=== PATIENT | male | born 1960 | race Caucasian/White ===

== ENCOUNTER 2022-09-05 17:10 | Inpatient (IN) | payer BC, OTHER ==
[~2022-09-05] VITALS: Ht 167.6 cm; Wt 87.0 kg
[2022-09-05] MEDS ORDERED: MORPHINE SULFATE 4 MG/ML SYR/VIAL IV ONE ×2 (21:00→22:00)
[2022-09-05] MEDS ORDERED: ONDANSETRON HCL 4 MG/2 ML VIAL IV ONE ×2 (21:00→22:00)
[2022-09-06 00:15] LABS: Basophils # (auto) 0 10 ^3/uL (0-0.2); Basophils % (auto) 0.1 % (0.0-2.0); Eosinophils # (auto) 0.1 10 ^3/uL (0-0.8); Eosinophils % (auto) 0.8 % (0.0-7.0); Hematocrit 37.2 % (41.0-53.0); Hemoglobin 12.4 g/dL (13.5-17.5); Lymphocytes # (auto) 1.7 10 ^3/uL (0.4-5.4); Lymphocytes % (auto) 20.1 % (10.0-50.0); Mean Corpuscular Hemoglobin 32.7 pg (28.0-32.0); Mean Corpuscular Hgb Conc. 33.2 g/dL (32.0-36.0); Mean Corpuscular Volume 98.3 fL (80.0-100.0); Monocytes # (auto) 0.7 10 ^3/uL (0-1.3); Monocytes % (auto) 7.8 % (0.0-12.0); Neutrophils # (auto) 6.2 10 ^3/uL (1.6-8.6); Neutrophils % (auto) 71.2 % (37.0-80.0); Red Blood Cells 3.79 10^6/uL (4.5-5.90); Red Cell Distribution Width 13.3 % (11.8-14.3); White Blood Cell 8.7 10^3/uL (4.4-10.8)
[2022-09-06 00:28] LABS: Albumin 3.1 g/dL (3.4-5.0); BUN/Creatinine Ratio 23.8; Calcium 8.7 mg/dL (8.5-10.1); INR 1.02 (0.9-1.15); Potassium 3.7 mmol/L (3.5-5.1)
[2022-09-06 00:38] LABS: Total Protein 6.6 g/dL (6.4-8.2)
[2022-09-06] MEDS ORDERED: ONDANSETRON HCL 4 MG/2 ML VIAL IV PRN ×2 (02:45→04:30)
[2022-09-06] MEDS ORDERED: ACETAMINOPHEN 325 MG TAB PO PRN ×2 (02:45→04:30)
[2022-09-06] MEDS ORDERED: TEMAZEPAM 15 MG CAP PO PRN ×2 (02:45→04:30)
[2022-09-06] MEDS ORDERED: MORPHINE SULFATE INJ 2 MG/ml SYRG IV PRN (02:45)
[2022-09-06] MEDS ORDERED: HYDROcodone-ACET 5/325MG TAB PO PRN (02:45)
[2022-09-06 04:01] LABS: Urine Bacteria FEW /hpf (None Seen); Urine Blood Negative /uL (Negative); Urine Hyaline Cast FEW /lpf (0 - 2); Urine WBC 2 /hpf (0 - 3)
[2022-09-06] MEDS: MORPHINE SULFATE INJ 2 MG/ml SYRG IV PRN ×2 (04:45→10:06)
[2022-09-06 04:55] VITALS: BP 124/80
[2022-09-06 05:00] VITALS: BP 124/80
[2022-09-06] MEDS ORDERED: PNEUMOCOCCAL VACC POLYS 25 MCG/0.5 ML VIAL IM ONE (06:00)
[2022-09-06 09:00] VITALS: BP 127/73
[2022-09-06] MEDS ORDERED: PANTOPRAZOLE 40 MG TAB PO SCH (10:00)
[2022-09-06] MEDS ORDERED: LABETALOL HCL 200 MG TAB PO SCH (10:00)
[2022-09-06] MEDS: PANTOPRAZOLE 40 MG TAB PO SCH (10:05)
[2022-09-06] MEDS: LABETALOL HCL 200 MG TAB PO SCH ×2 (10:05→21:30)
[2022-09-06] MEDS: D5W/SOD CHLO 0.9% 1,000 ML IV SCH ×2 (10:55→18:30)
[2022-09-06 13:00] VITALS: BP 127/71
[2022-09-06] MEDS: MORPHINE SULFATE 4 MG/ML SYR/VIAL IV PRN ×3 (13:02→23:49)
[2022-09-06 17:00] VITALS: BP 132/79
[2022-09-06 19:16] LABS: INR 1.03 (0.9-1.15); Partial Thromboplastin Time 29.8 sec (24.6-33.4)
[2022-09-06] MEDS: ATORVASTATIN 20 MG TAB PO SCH (21:30)
[2022-09-06 22:00] VITALS: BP 120/83
[2022-09-06] MEDS ORDERED: ATORVASTATIN 20 MG TAB PO SCH (22:00)
[2022-09-07] MEDS: D5W/SOD CHLO 0.9% 1,000 ML IV SCH ×4 (02:37→21:52)
[2022-09-07 05:00] VITALS: BP 130/80
[2022-09-07] MEDS: MORPHINE SULFATE 4 MG/ML SYR/VIAL IV PRN ×4 (06:04→21:53)
[2022-09-07 08:35] VITALS: BP 150/79
[2022-09-07] MEDS ORDERED: TETRACAINE 1% INJ 2 ML VIAL IJ ONE (09:05)
[2022-09-07] MEDS ORDERED: MORPHINE SULF PF 5 MG/10 ML VIAL ONE (09:07)
[2022-09-07] MEDS ORDERED: fentaNYL CITRATE 100 MCG/2 ML VL ONE (09:07)
[2022-09-07] MEDS ORDERED: MIDAZOLAM HCL 2MG/2ML 2ml VIAL (1mg/ml) ONE (09:15)
[2022-09-07] MEDS ORDERED: PROPOFOL 10 MG/ML 20 ML IV ONE (09:18)
[2022-09-07] MEDS ORDERED: ONDANSETRON HCL 4 MG/2 ML VIAL ONE (09:44)
[2022-09-07] MEDS: PANTOPRAZOLE 40 MG TAB PO SCH (10:00)
[2022-09-07] MEDS: LABETALOL HCL 200 MG TAB PO SCH ×2 (10:00→21:52)
[2022-09-07] MEDS ORDERED: ONDANSETRON HCL 4 MG/2 ML VIAL IV PRN (10:15)
[2022-09-07] MEDS: HYDROmorphone HCL 2 MG/ML VL/or syr IV PRN ×3 (10:18→10:41)
[2022-09-07 13:44] VITALS: BP 150/79
[2022-09-07] MEDS: HYDROcodone-ACET 5/325MG TAB PO PRN (15:35)
[2022-09-07 17:00] VITALS: BP 142/80
[2022-09-07] MEDS: ATORVASTATIN 20 MG TAB PO SCH (21:52)
[2022-09-07 22:00] VITALS: BP 122/70
[2022-09-08] MEDS: MORPHINE SULFATE 4 MG/ML SYR/VIAL IV PRN ×5 (02:19→21:36)
[2022-09-08 05:00] VITALS: BP 138/75
[2022-09-08] MEDS: HYDROcodone-ACET 5/325MG TAB PO PRN ×2 (05:36→18:34)
[2022-09-08 09:00] VITALS: BP 115/66
[2022-09-08] MEDS ORDERED: HYDR-4798 PO (09:57)
[2022-09-08] MEDS: D5W/SOD CHLO 0.9% 1,000 ML IV SCH ×3 (10:30→18:35)
[2022-09-08] MEDS: PANTOPRAZOLE 40 MG TAB PO SCH (10:32)
[2022-09-08] MEDS: LABETALOL HCL 200 MG TAB PO SCH ×2 (10:32→21:35)
[2022-09-08 12:23] VITALS: BP 130/73
[2022-09-08 13:00] VITALS: BP 135/79
[2022-09-08] MEDS ORDERED: INFLUENZA QUAD 2022-2023 0.5 ML SYRG IM ONE (13:00)
[2022-09-08 16:38] VITALS: BP 136/80
[2022-09-08] MEDS: ATORVASTATIN 20 MG TAB PO SCH (21:34)
[2022-09-08 22:00] VITALS: BP 120/69
[2022-09-09] MEDS: D5W/SOD CHLO 0.9% 1,000 ML IV SCH ×2 (01:39→10:24)
[2022-09-09] MEDS: MORPHINE SULFATE 4 MG/ML SYR/VIAL IV PRN ×3 (02:21→10:50)
[2022-09-09 05:00] VITALS: BP 110/64
[2022-09-09 08:00] VITALS: BP 100/53
[2022-09-09 09:00] VITALS: BP_SYST 124; BP_SYST 132; BP_DIAS 57; BP_DIAS 58
[2022-09-09] MEDS: HYDROcodone-ACET 5/325MG TAB PO PRN ×2 (10:19→15:34)
[2022-09-09] MEDS: PANTOPRAZOLE 40 MG TAB PO SCH (10:23)
[2022-09-09] MEDS: LABETALOL HCL 200 MG TAB PO SCH (10:23)
[2022-09-09 13:00] VITALS: BP_SYST 115; BP_SYST 140; BP_DIAS 49; BP_DIAS 53
== END 2022-09-09 16:00 | disposition home or self-care (01) | DRG 563 ==
LOC: EDBD 17:10 → ER 17:10 → OVERFLOW 09-06 02:34 → ER 09-06 03:55 → WEST WING 09-06 04:05
PROVIDERS: ADMIT Nurse Practitioner; ATTEND Family Medicine
PROC: 0QSHXZZ Reposition Left Tibia, External Approach (ICD-10-PCS; principal; 2022-09-07 09:22)
DX: S82.202A Unspecified fracture of shaft of left tibia, initial encounter for closed fracture (principal); E86.0 Dehydration; Z20.822 Contact with and (suspected) exposure to COVID-19; E78.00 Pure hypercholesterolemia, unspecified; I10 Essential (primary) hypertension; S82.832A Other fracture of upper and lower end of left fibula, initial encounter for closed fracture; V68.0XXA Driver of heavy transport vehicle injured in noncollision transport accident in nontraffic accident, initial encounter; Y93.89 Activity, other specified; Y92.008 Other place in unspecified non-institutional (private) residence as the place of occurrence of the external cause
CPT/HCPCS: 36415; 71045; 73590; 73610; 73700; 76000; 80053; 81001; 85025; 85610; 85730; 86850; 86900; 86901; 87426; 96374; 96375; 96376; 97110; 97116; 97163; 97530; G0378; J2250; J2405; J2704; J7042